=== PATIENT | female | born 1955 | race Caucasian/White ===

== ENCOUNTER 2017-11-14 06:12 | Day surgery (SDC) | payer OTHER ==
[2017-11-14] MEDS ORDERED: NALOXONE (0.4 MG/ML) INJ IV (06:30)
[2017-11-14] MEDS ORDERED: NEOSTIGMINE 3 MG/3 ML SYRINGE (07:00)
[2017-11-14] MEDS ORDERED: METOCLOPRAMIDE 10 MG INJ (07:00)
[2017-11-14] MEDS ORDERED: GLYCOPYRROLATE 0.4 MG INJ (07:00)
[2017-11-14] MEDS ORDERED: MIDAZOLAM 1 MG/ML 2 ML INJ (08:31)
[2017-11-14] MEDS ORDERED: PROPOFOL 20 ML (08:31)
[2017-11-14] MEDS ORDERED: ROPIVACAINE 0.2% 20 ML VIAL (08:31)
[2017-11-14] MEDS ORDERED: ONDANSETRON 4 MG INJ (08:31)
[2017-11-14] MEDS ORDERED: ROCURONIUM 50 MG INJ (08:31)
[2017-11-14] MEDS ORDERED: LIDOCAINE 1% (MPF) 30 ML INJ (08:33)
[2017-11-14] MEDS ORDERED: BUPIVACAINE 0.25% (MPF) 30 ML INJ (08:36)
[2017-11-14] MEDS ORDERED: CEFAZOLIN 1 GM INJ (08:48)
[2017-11-14] MEDS ORDERED: KETOROLAC 30 MG INJ (08:51)
[2017-11-14] MEDS ORDERED: HYDROmorphONE 2 MG/ML SYG (08:56)
[2017-11-14] MEDS: BUPIVACAINE 0.25% (MPF) 30 ML INJ (09:09)
[2017-11-14] MEDS ORDERED: ONDANSETRON 4 MG INJ IV (09:30)
[2017-11-14] MEDS ORDERED: OXYCODONE/ACETAMINOPHEN (5/325) TAB PO ×2 (09:30)
[2017-11-14] MEDS ORDERED: morphine 2 MG INJ IV (09:30)
== END 2017-11-14 11:38 | disposition home or self-care (01) ==
LOC: SDS 06:12
DX: K40.90 Unilateral inguinal hernia, without obstruction or gangrene, not specified as recurrent (principal)
CPT/HCPCS: 49505